=== PATIENT | female | born 1965 | race Caucasian/White ===

== ENCOUNTER 2017-03-13 07:20 | Day surgery (SDC) | payer OTHER ==
[~2017-03-13] VITALS: Ht 167.6 cm; Wt 64.0 kg
[2017-03-13] VITALS (28 sets, daily range): BP systolic 109–178; BP diastolic 50–85; PULSE 56–68; RESP 11–24; Ht 167.6 cm; Wt 64.0 kg
[~2017-03-13 07:20] MED LIST: CEFAZOLIN 1 GM/50 ML (PMX) 50 ML IVPB ONE; SOD CHLORIDE 0.9% 1,000 ML IV SCH
[2017-03-13] MEDS ORDERED: MIDAZOLAM 1 MG/ML 2 ML INJ ONE (08:12)
[2017-03-13] MEDS ORDERED: PROPOFOL 20 ML ONE (08:12)
[2017-03-13] MEDS ORDERED: LIDOCAINE 2% (SDV) 5 ML INJ ONE (08:12)
[2017-03-13] MEDS ORDERED: ACETAMINOPHEN 1000MG/100ML IV 100 ML ONE (08:12)
[2017-03-13] MEDS ORDERED: DEXAMETHASONE 4 MG/ML 1 ML INJ ONE (08:13)
[2017-03-13] MEDS ORDERED: FAMOTIDINE 20 MG INJ ONE (08:13)
[2017-03-13] MEDS ORDERED: ONDANSETRON 4 MG INJ ONE (08:13)
[2017-03-13] MEDS ORDERED: MULTI PO (08:36)
[2017-03-13] MEDS ORDERED: FER325 PO (08:37)
[2017-03-13] MEDS ORDERED: HYDROmorphONE (0.2 MG/ML) 10ML SYG IV PRN ×3 (09:00)
[2017-03-13] MEDS ORDERED: DIPHENHYDRAMINE 50 MG INJ IV PRN (09:00)
[2017-03-13] MEDS ORDERED: ONDANSETRON 4 MG INJ IV PRN ×2 (09:00→11:00)
[2017-03-13] MEDS ORDERED: FENTAnyl 50 MCG/ML VIAL IV PRN ×2 (09:00)
[2017-03-13] MEDS ORDERED: OCULAR LUBRICANT 3.5 GM OPH OINT ONE (09:48)
[2017-03-13] MEDS ORDERED: CEFAZOLIN 1 GM INJ ONE ×2 (09:55→10:20)
[2017-03-13] MEDS ORDERED: METOPROLOL 5 MG INJ ONE (10:20)
[2017-03-13] MEDS ORDERED: HYDROmorphONE 2 MG/ML SYG ONE (10:21)
[2017-03-13] MEDS ORDERED: ACETAMINOPHEN 1000MG/100ML IV 100 ML IVPB PRN (11:00)
--- NOTE | 2017-03-13 14:00 | HP ---
Date/Time of Note Date/Time of Note DATE: 03/13/17 TIME: 13:48 Assessment/Plan VTE Prophylaxis VTE Prophylaxis Intervention: SCD's Lines/Catheters IV Catheter Type (from Nrsg): Peripheral IV Assessment/Plan Assessment/Plan -Invasive cancer of the right breast, status post left partial mastectomy with axillary dissection by Dr. Pierce. Continue Tylenol and morphine as needed for pain and Zofran as needed for nausea. Further recommendations based on clinical course. End of care discussed with Dr. Abraham. HPI/ROS Admit Date/Time Admit Date/Time Hx of Present Illness The patient is a 51-year-old female who was diagnosed with a left breast cancer in August 2016. Patient denies any prior medical history except for a uterine fibroid spot status post myomectomy in 2006 and meningioma resection 21/ 2 months ago. Patient's completed treatment with chemotherapy for left breast cancer. Today patient was brought to the hospital and underwent a left partial mastectomy and axillary node dissection by Dr. Pierce. Postoperatively patient experiencing moderate pain and patient would be admitted for further evaluation and management. ROS Constitutional: no complaints Eyes: no complaints Respiratory: no complaints Cardiovascular: no complaints Gastrointestinal: no complaints Musculoskeletal: no complaints Skin: no complaints Neurologic: no complaints Endocrine: no complaints Lymphatic: no complaints Psychological: no complaints PMH/Family/Social Past Medical History Per HPI Past Surgical History Status post myomectomy in 2006, status post meningioma resection in December 2016. Family History Significant Family History: no pertinent family hx Social History Alcohol Use: none Smoking Status: Former smoker Drug Use: none Exam/Review of Systems Vital Signs Vitals Vital Signs Date Time Temp Pulse Resp B/P Pulse Ox O2 Delivery O2 Flow Rate FiO2 03/13/17 13:30 64 18 133/60 99 Nasal Cannula 2.0 03/13/17 11:51 98.2 Intake and Output 03/12/17 03/12/17 03/13/17 14:59 22:59 06:59 Intake Total 0 ml Balance 0 ml Exam Constitutional: alert, oriented Psych: no complaints Head: other (Healed scar) Neck: supple Respiratory: normal air movement Cardiovascular: nl pulses Gastrointestinal: non-tender, soft Musculoskeletal: nl gait and stance Extremities: normal pulses Skin: other (Status post left partial mastectomy with axillary ОЛЬГА) Additional Comments Right chest Port-A-Cath Medications Medications Current Medications Sodium Chloride (NS) 1,000 ml @ 75 mls/hr [id number] IV ; Start 03/13/17 at 07:00 ; Stop 03/13/17 at 20:19 Ondansetron HCl 4 mg 4 mg Q6H PRN IV NAUSEA AND/OR VOMITING; Start 03/13/17 at 11:00 Potassium Chloride/Dextrose/ Sod Cl (D5-1/2ns + KCl 20 Meq) 1,000 ml @ 125 mls/ hr Q8H IV ; Start 03/13/17 at 10:52 Morphine Sulfate 2 mg 2 mg Q1H PRN IV PAIN; Start 03/13/17 at 11:00 Acetaminophen (Ofirmev 1000mg/ 100ml Iv) 100 ml @ 400 mls/hr Q6H PRN IVPB PAIN ; Start 03/13/17 at 11:00 REJI MUNOZ Mar 13, 2017 13:59
[2017-03-13] MEDS: morphine 2 MG INJ IV PRN ×2 (14:06→22:47)
[2017-03-13] MEDS: D5W-0.45 NACL + KCL 20 MEQ 1,000 ML IV SCH ×2 (18:10→18:52)
[2017-03-13] MEDS ORDERED: METOCLOPRAMIDE 10 MG INJ IV ONE (19:00)
[2017-03-14 02:51] VITALS: BP 120/56; RESP 16
[2017-03-14] MEDS: D5W-0.45 NACL + KCL 20 MEQ 1,000 ML IV SCH (02:52)
[2017-03-14 05:04] VITALS: BP 132/65; PULSE 74; RESP 17
[2017-03-14 07:42] VITALS: BP 117/55; RESP 20
[2017-03-14 08:39] LABS: ADD SCAN DIFF NO
[2017-03-14 08:47] LABS: BASOPHILS % 0.4 % (0.0-2.0); EOSINOPHILS # 0.1 10^3/ul (0.0-0.5); EOSINOPHILS % 1.6 % (0.0-7.0); HEMATOCRIT 30.7 % (37.0-47.0); HEMOGLOBIN 10.1 g/dl (12.0-16.0); LYMPHOCYTES # 2.2 10^3/ul (0.8-2.9); LYMPHOCYTES % 43.4 % (15.0-51.0); MEAN CORPUSCULAR HEMOGLOBIN 32.7 pg (29.0-33.0); MEAN CORPUSCULAR HGB CONC 32.9 g/dl (32.0-37.0); MEAN CORPUSCULAR VOLUME 99.4 fl (82.0-101.0); MEAN PLATELET VOLUME 11.1 fl (7.4-10.4); MONOCYTE # 0.4 10^3/ul (0.3-0.9); MONOCYTES % 8.6 % (0.0-11.0); NEUTROPHIL # 2.3 10^3/ul (1.6-7.5); PLATELET COUNT 184 10^3/UL (140-415); RED BLOOD COUNT 3.09 10^6/ul (4.20-5.40); RED CELL DISTRIBUTION WIDTH 13.2 % (11.5-14.5); WHITE BLOOD COUNT 5.1 10^3/ul (4.8-10.8)
[2017-03-14 09:05] LABS: CALCIUM 9.2 mg/dl (8.4-10.2); CREATININE 0.9 mg/dl (0.44-1.00); POTASSIUM 3.6 mmol/L (3.5-5.1)
[2017-03-14] MEDS ORDERED: HYDR-906 PO (12:37)
[2017-03-14 13:00] VITALS: BP 128/68; RESP 18
--- NOTE | 2017-03-14 17:51 | DS ---
Date/Time of Note Date/Time of Note DATE: 03/14/17 TIME: 17:49 Discharge Summary Admission/Discharge Info Admit Date/Time Discharge Date/Time Discharge Diagnosis -Invasive cancer of the right breast, status post left partial mastectomy with axillary dissection by Dr. Pierce. Continue Tylenol and morphine as needed for pain and Zofran as needed for nausea. Patient Condition: Good Hx of Present Illness The patient is a 51-year-old female who was diagnosed with a left breast cancer in August 2016. Patient denies any prior medical history except for a uterine fibroid spot status post myomectomy in 2006 and meningioma resection 21/ 2 months ago. Patient's completed treatment with chemotherapy for left breast cancer. Today patient was brought to the hospital and underwent a left partial mastectomy and axillary node dissection by Dr. Pierce. Postoperatively patient experiencing moderate pain and patient would be admitted for further evaluation and management. Hospital Course -Invasive cancer of the right breast, status post left partial mastectomy with axillary dissection by Dr. Pierce. Patient was giving Tylenol and morphine as needed for pain and Zofran as needed for nausea. Patient's condition improved, patient was discharged home with axillary ОЛЬГА drain. Home Meds Active Scripts Hydrocodone/Acetaminophen (Axtell 5-325 Tablet) 1 Each Tablet, 1 EACH PO Q4, #20 TAB Prov:REJI MUNOZ 03/14/17 Reported Medications Ferrous Sulfate* (Ferrous Sulfate*) 325 Mg Tabec, 325 MG PO DAILY, TAB 03/13/17 Multivitamins* (Theragran*) 1 Tab Tab, 1 TAB PO DAILY, TAB 03/13/17 Follow-up Plan Follow-up with Dr. Pierce in 1 week Primary Care Provider Not On Staff Doctor Time spent on discharge: > 30 minutes Pending Labs Laboratory Tests Test 03/14/17 06:50 03/14/17 08:05 Lab Scanned Report [id number] White Blood Count 5.110^3/ul (4.8-10.8) Red Blood Count 3.0910^6/ul (4.20-5.40) Hemoglobin 10.1g/dl (12.0-16.0) Hematocrit 30.7% (37.0-47.0) Mean Corpuscular Volume 99.4fl (82.0-101.0) Mean Corpuscular Hemoglobin 32.7pg (29.0-33.0) Mean Corpuscular Hemoglobin Concent 32.9g/dl (32.0-37.0) Red Cell Distribution Width 13.2% (11.5-14.5) Platelet Count 68912^3/UL (140-415) Mean Platelet Volume 11.1fl (7.4-10.4) Neutrophils % 46.0% (39.0-77.0) Lymphocytes % 43.4% (15.0-51.0) Monocytes % 8.6% (0.0-11.0) Eosinophils % 1.6% (0.0-7.0) Basophils % 0.4% (0.0-2.0) Nucleated Red Blood Cells % 0.0/100WBC (0.0-0.0) Neutrophils # 2.310^3/ul (1.6-7.5) Lymphocytes # 2.210^3/ul (0.8-2.9) Monocytes # 0.410^3/ul (0.3-0.9) Eosinophils # 0.110^3/ul (0.0-0.5) Basophils # 0.010^3/ul (0.0-0.1) Nucleated Red Blood Cells # 0.010^3/ul (0.0-0.0) Sodium Level 133mmol/L (135-144) Potassium Level 3.6mmol/L (3.5-5.1) Chloride Level 101mmol/L (97-110) Carbon Dioxide Level 30mmol/L (21-31) Anion Gap 6 (8-16) Blood Urea Nitrogen 16mg/dl (7-20) Creatinine 0.90mg/dl (0.44-1.00) Glucose Level 81mg/dl (70-220) Calcium Level 9.2mg/dl (8.4-10.2) REJI MUNOZ Mar 14, 2017 17:51
--- NOTE | 2017-03-21 09:08 | OPR ---
DATE OF OPERATION: 03/13/2017 POSTOPERATIVE DIAGNOSIS: Locally advanced left breast cancer. POSTOPERATIVE DIAGNOSIS: Locally advanced left breast cancer. OPERATION PERFORMED: Left partial mastectomy and axillary dissection. ANESTHESIA: General ANESTHESIOLOGIST: . Nurse credit correspondence clerk, Estrellita Zamudio. SURGEON: Nav Pierce MD TECHNICAL SALES ASSOCIATE: Keshia Camp MD INDICATIONS FOR PROCEDURE: The patient is an unfortunate, 51- year-old female who presented with a large mass in her left breast. Workup including biopsy revealed a HER2 positive breast cancer. She was therefore referred for neoadjuvant chemotherapy. She completed her chemotherapy with some response. She was counseled as to the need for surgery. She requested breast conservation surgery. She consented for a left partial mastectomy and axillary dissection. DESCRIPTION OF PROCEDURE: The patient was brought to the operating room theater, placed under general endotracheal tube anesthesia. The left breast and axillary region were prepped and draped in the usual sterile fashion. The mass was in the upper outer quadrant of the left breast. A curvilinear incision was made over it. Subcutaneous tissue was then dissected with cautery. The skin edges were elevated with skin hooks and wide circumferential dissection of the tissue associated with the mass, then took place with cautery, taking great care to ensure adequate margins. The specimen was elevated, transected, oriented, and sent for permanent pathologic analysis. The wound was irrigated. Minimal bleeding was controlled with cautery. The skin was then reapproximated with 4-0 Vicryl suture in subcuticular fashion. Dermabond was applied. Attention was then directed to performing the axillary dissection. A 5-cm incision was made at the left axillary hairline. Subcutaneous tissue was dissected with cautery. The dissection proceeded anteriorly to the border of the pectoralis major and subsequently the pectoralis minor muscle was identified. Clavipectoral fascia was incised, blunt dissection along the chest wall. The long thoracic nerve was identified and kept out of harm's way. More superiorly, the axillary vein was identified and dissected from medial to lateral. The thoracodorsal neurovascular bundle was identified throughout its course and kept out of harm's way. Posterolaterally, latissimus dorsi muscle was identified and dissected throughout its course. Node-bearing tissue between the long thoracic nerve and thoracodorsal nerve was meticulously harvested using a LigaSure device. Specimen was removed and sent for permanent pathologic analysis. The wound was irrigated. Minimal bleeding was controlled with cautery. A number 10 flat Farooq-Bell drain was then brought through the left axillary hairline. It was kept aside and laid within the axilla. It was secured in place with 2- 0 nylon suture in the standard fashion. The skin incision was then closed with a 4-0 Vicryl suture in subcuticular fashion. Dermabond was then applied to the wound. The patient tolerated the procedure well. The patient was transported in stable condition to the recovery room, where a circumferential compression dressing was applied. ESTIMATED BLOOD LOSS: 30 mL COMPLICATIONS: None. Dictated By: Nav Pierce MD /ignacio/halley /Document#: [id number]
== END 2017-03-14 15:15 | disposition home or self-care (01) ==
LOC: SDS 07:20 → MS2 16:40 → SDS 03-14 15:15
PROVIDERS: ATTEND Surgery Surgical Oncology
DX: C50.919 Malignant neoplasm of unspecified site of unspecified female breast (principal)
CPT/HCPCS: 19301; 38500; 80048; 84703; 85025; 88307; J0131; J0690; J1100; J1170; J2250; J2270; J2405; J2765; J3010; J3480; Z7512; Z7610

== ENCOUNTER 2017-12-13 09:13 | Day surgery (SDC) | END 2017-12-13 13:15 | disposition home or self-care (01) ==

== ENCOUNTER → 2018-09-11 | Outpatient (CLI) | payer OTHER ==
[~2018-09-11] MED LIST changes: -CEFAZOLIN 1 GM/50 ML (PMX) 50 ML IVPB ONE; +FOLI-49 PO; +MULTI PO; -SOD CHLORIDE 0.9% 1,000 ML IV SCH; +VENL75CA89 PO
--- NOTE | 2018-09-17 12:36 | SP ---
DATE OF PROCEDURE: 09/11/2018 INDICATION: A 53-year-old lady with history of left frontal craniotomy secondary to meningioma and p ossible seizures. DESCRIPTION OF PROCEDURE: Routine EEG was recorded digitally. Gjckk-yc-kryrb and dzdbn-eo-sxf carlo ges were recorded and reviewed. All impedances were measured and recorded. Cap electrodes were plac ed in accordance to International 10-20 system of electrode placement. Symmetrically distributed background activity of low to medium amplitude was seen throughout the fei rding in the awake state ranging in frequency between 10 to 12 cycles per second. Photic stimulation produces normal driving. Hyperventilation elicits no epileptiform activity. When patient gets drow sy, background rhythm gets slightly less organized then partially intermixed with slower waves 2 to 4 cycles per second. No definite epileptiform transients were seen. No signs of ongoing electrograph ic seizures or lateralized slowing. IMPRESSION: Essentially normal study. Please correlate clinically. Dictated By: DEREJE SOW/FREDO Conf#: [id number] DID#: [id number]
== END | disposition home or self-care (01) ==
LOC: EEG 10:55
PROVIDERS: ATTEND Family Medicine Adult Medicine
DX: G40.909 Epilepsy, unspecified, not intractable, without status epilepticus (principal)
CPT/HCPCS: 95819